=== PATIENT | female | born 1990 | race Caucasian/White ===

== ENCOUNTER 2017-09-11 10:55 | Outpatient (CLI) | payer BC | END 2017-09-11 13:55 | disposition home or self-care (01) | LOC: OBT 10:55 → L-D 10:56 → OBT 13:55 | DX: O26.893 Other specified pregnancy related conditions, third trimester (principal); R05 Cough; Z3A.30 30 weeks gestation of pregnancy | CPT/HCPCS: 76817 ==

== ENCOUNTER 2017-09-11 13:55 | Emergency (ER) | payer BC | END 2017-09-11 14:19 | disposition home or self-care (01) | LOC: E/R 13:55 | DX: O99.513 Diseases of the respiratory system complicating pregnancy, third trimester (principal); J06.9 Acute upper respiratory infection, unspecified; O99.283 Endocrine, nutritional and metabolic diseases complicating pregnancy, third trimester; E03.9 Hypothyroidism, unspecified; Z79.82 Long term (current) use of aspirin; Z3A.31 31 weeks gestation of pregnancy | CPT/HCPCS: 99283; Z7502 ==

== ENCOUNTER 2017-09-26 09:10 | Inpatient (IN) | payer BC ==
[2017-09-26] MEDS: ACETAMINOPHEN 500 MG TAB PO (11:01)
[2017-09-26 11:36] LABS: ADD MAN DIFF? NO
[2017-09-26 11:42] LABS: ADD UMIC YES; UR ASCORBIC ACID NEGATIVE (NEGATIVE); UR BACTERIA FEW /HPF (NONE SEEN); UR BILIRUBIN (Dip) NEGATIVE (NEGATIVE); UR BLOOD (Dip) NEGATIVE (NEGATIVE); UR CLARITY CLEAR (CLEAR); UR COLOR YELLOW (YELLOW); UR GLUCOSE (Dip) NEGATIVE (NEGATIVE); UR KETONES (Dip) NEGATIVE (NEGATIVE); UR LEUKOCYTE ESTERASE (Dip) TRACE Leu/ul (NEGATIVE); UR MUCUS FEW /HPF (NONE SEEN); UR NITRITE (Dip) NEGATIVE (NEGATIVE); UR RBC 1 /HPF (0-5); UR SPECIFIC GRAVITY (Dip) 1.015 (1.003-1.030); UR SQUAMOUS EPITHELIAL CELL FEW /HPF (FEW); UR TOTAL PROTEIN (Dip) NEGATIVE (NEGATIVE); UR UROBILINOGEN (Dip) NEGATIVE (NEGATIVE); UR WBC 9 /HPF (0-5)
[2017-09-26 11:43] LABS: WHITE BLOOD COUNT 8.7 10^3/ul (4.8-10.8)
[2017-09-26 11:43] LABS: BASOPHILS % 0.3 % (0.0-2.0); EOSINOPHILS # 0.1 10^3/ul (0.0-0.5); EOSINOPHILS % 0.8 % (0.0-7.0); HEMATOCRIT 37.9 % (37.0-47.0); LYMPHOCYTES % 22.6 % (15.0-51.0); MEAN CORPUSCULAR HEMOGLOBIN 31.2 pg (29.0-33.0); MEAN CORPUSCULAR HGB CONC 34.3 g/dl (32.0-37.0); MEAN CORPUSCULAR VOLUME 90.9 fl (82.0-101.0); MEAN PLATELET VOLUME 10.5 fl (7.4-10.4); MONOCYTE # 0.3 10^3/ul (0.3-0.9); MONOCYTES % 3.4 % (0.0-11.0); NEUTROPHIL # 6.3 10^3/ul (1.6-7.5); NEUTROPHILS % 72.1 % (39.0-77.0); PLATELET COUNT 172 10^3/UL (140-415); RED BLOOD COUNT 4.17 10^6/ul (4.20-5.40); RED CELL DISTRIBUTION WIDTH 12.5 % (11.5-14.5)
[2017-09-26 12:13] LABS: ALANINE AMINOTRANSFERASE 29 IU/L (13-69); ALBUMIN 3.4 g/dl (3.3-4.9); ALBUMIN/GLOBULIN RATIO 1.13; ALKALINE PHOSPHATASE 147 IU/L (42-121); ANION GAP 12 (8-16); ASPARTATE AMINO TRANSFERASE 21 IU/L (15-46); BILIRUBIN,INDIRECT 0.5 mg/dl (0-1.1); BILIRUBIN,TOTAL 0.5 mg/dl (0.2-1.3); BLOOD UREA NITROGEN 7 mg/dl (7-20); CALCIUM 8.7 mg/dl (8.4-10.2); CARBON DIOXIDE 23 mmol/L (21-31); CHLORIDE 107 mmol/L (97-110); CREATININE 0.67 mg/dl (0.44-1.00); GLUCOSE 74 mg/dl (70-220); POTASSIUM 3.9 mmol/L (3.5-5.1); SODIUM 138 mmol/L (135-144); TOTAL PROTEIN 6.4 g/dl (6.1-8.1); URIC ACID 4.2 mg/dl (3.1-7.9)
[2017-09-26 12:21] LABS: INR 0.89; PARTIAL THROMBOPLASTIN TIME 25.3 Sec (25.0-35.0); PROTIME 12.1 Sec (11.9-14.9); PT RATIO 0.9
[2017-09-26] MEDS: LACTATED RINGER'S 1,000 ML IV ×3 (13:28→23:12)
[2017-09-26] MEDS: ACETAMINOPHEN 325 MG TAB PO (20:20)
[2017-09-27] MEDS: ACETAMINOPHEN 325 MG TAB PO ×2 (06:23→17:25)
[2017-09-27] MEDS: LACTATED RINGER'S 1,000 ML IV ×2 (06:41→17:51)
[2017-09-27] MEDS: PRENATAL VITAMIN PO (21:12)
[2017-09-27] MEDS: ASPIRIN 81 MG TAB PO (21:12)
[2017-09-28] MEDS: LACTATED RINGER'S 1,000 ML IV (01:58)
[2017-09-28] MEDS: ACETAMINOPHEN 325 MG TAB PO ×2 (07:45→15:48)
[2017-09-28] MEDS: ASPIRIN 81 MG TAB PO ×2 (09:00→22:30)
[2017-09-28 12:48] LABS: ADD UMIC YES; UR ASCORBIC ACID NEGATIVE (NEGATIVE); UR BACTERIA FEW /HPF (NONE SEEN); UR BILIRUBIN (Dip) NEGATIVE (NEGATIVE); UR BLOOD (Dip) NEGATIVE (NEGATIVE); UR CLARITY CLEAR (CLEAR); UR COLOR YELLOW (YELLOW); UR GLUCOSE (Dip) NEGATIVE (NEGATIVE); UR KETONES (Dip) NEGATIVE (NEGATIVE); UR LEUKOCYTE ESTERASE (Dip) NEGATIVE Leu/ul (NEGATIVE); UR NITRITE (Dip) POSITIVE (NEGATIVE); UR RBC 0 /HPF (0-5); UR SPECIFIC GRAVITY (Dip) 1.008 (1.003-1.030); UR TOTAL PROTEIN (Dip) NEGATIVE (NEGATIVE); UR UROBILINOGEN (Dip) NEGATIVE (NEGATIVE); UR WBC 0 /HPF (0-5)
[2017-09-28] MEDS: FERROUS SULFATE (EC) 325 MG TAB PO ×2 (18:17→20:56)
[2017-09-29] MEDS: ACETAMINOPHEN 325 MG TAB PO (11:29)
[2017-09-29 12:41] LABS: ANA SCREEN NEGATIVE (NEGATIVE)
[2017-09-29] MEDS: NITROFURANTOIN (SR) 100 MG CAP PO ×2 (15:47→23:57)
[2017-09-29] MEDS ORDERED: NITROFURANTOIN (SR) 100 MG CAP PO (21:00)
[2017-09-29] MEDS: PRENATAL VITAMIN PO (21:16)
[2017-09-29] MEDS: ASPIRIN 81 MG TAB PO (21:17)
[2017-09-29] MEDS: FERROUS SULFATE (EC) 325 MG TAB PO (21:17)
[2017-09-30] MEDS: NITROFURANTOIN (SR) 100 MG CAP PO ×2 (09:39→21:08)
[2017-09-30] MEDS: INFLUENZA VIRUS VACCINE 0.5 ML SYG IM* (16:19)
[2017-09-30] MEDS: FERROUS SULFATE (EC) 325 MG TAB PO (21:08)
[2017-09-30] MEDS: ASPIRIN 81 MG TAB PO (21:08)
[2017-09-30] MEDS: PRENATAL VITAMIN PO (21:09)
[2017-10-01] MEDS: NITROFURANTOIN (SR) 100 MG CAP PO (08:51)
[2017-10-02 20:12] LABS: ANTI-THROMBIN III 24 mg/dL (19-30)
== END 2017-10-01 14:30 | disposition home or self-care (01) | DRG 781 ==
LOC: OBT 09:10 → L-D 09:10 → OBT 13:48 → PP1 11:20
PROC: 3E0234Z Introduction of Serum, Toxoid and Vaccine into Muscle, Percutaneous Approach (ICD-10-PCS; principal; 2017-09-30)
DX: O99.353 Diseases of the nervous system complicating pregnancy, third trimester (principal); G40.909 Epilepsy, unspecified, not intractable, without status epilepticus; G43.909 Migraine, unspecified, not intractable, without status migrainosus; O23.43 Unspecified infection of urinary tract in pregnancy, third trimester; Z86.73 Personal history of transient ischemic attack (TIA), and cerebral infarction without residual deficits; Z79.82 Long term (current) use of aspirin; Z3A.33 33 weeks gestation of pregnancy; Z23 Encounter for immunization
CPT/HCPCS: 36415; 70544; 70551; 76815; 76817; 76818; 80053; 81001; 82731; 83890; 84560; 85025; 85300; 85302; 85305; 85384; 85610; 85613; 85730; 86038; 87086; 90686

== ENCOUNTER 2017-10-11 19:16 | Outpatient (CLI) | payer BC ==
[2017-10-11 20:16] LABS: ADD UMIC YES; UR ASCORBIC ACID 40 mg/dL (NEGATIVE); UR BACTERIA FEW /HPF (NONE SEEN); UR BILIRUBIN (Dip) NEGATIVE (NEGATIVE); UR BLOOD (Dip) NEGATIVE (NEGATIVE); UR CALCIUM OXALATE CRYSTAL MANY /HPF (NONE SEEN); UR CLARITY SLIGHTLY CLOUDY (CLEAR); UR COLOR YELLOW (YELLOW); UR GLUCOSE (Dip) NEGATIVE (NEGATIVE); UR KETONES (Dip) NEGATIVE (NEGATIVE); UR LEUKOCYTE ESTERASE (Dip) 1+ Leu/ul (NEGATIVE); UR MUCUS FEW /HPF (NONE SEEN); UR NITRITE (Dip) NEGATIVE (NEGATIVE); UR RBC 1 /HPF (0-5); UR SPECIFIC GRAVITY (Dip) 1.023 (1.003-1.030); UR SQUAMOUS EPITHELIAL CELL MODERATE /HPF (FEW); UR TOTAL PROTEIN (Dip) NEGATIVE (NEGATIVE); UR UROBILINOGEN (Dip) NEGATIVE (NEGATIVE); UR WBC 115 /HPF (0-5)
[2017-10-11] MEDS: TERBUTALINE 1 MG/ML INJ SC (21:10)
[2017-10-11] MEDS: LACTATED RINGER'S 1,000 ML IV ×2 (21:11→21:39)
[2017-10-11] MEDS: SOD CHLORIDE 0.9% 1,000 ML IV (22:45)
[2017-10-11] MEDS: FLUCONAZOLE 150 MG TAB PO (22:45)
[2017-10-11] MEDS: CEFTRIAXONE 1 GM/50 ML (PMX) 50 ML IVPB (22:46)
== END 2017-10-12 00:45 | disposition home or self-care (01) ==
LOC: OBT 19:16 → L-D 19:18
DX: O23.43 Unspecified infection of urinary tract in pregnancy, third trimester (principal); B96.20 Unspecified Escherichia coli [E. coli] as the cause of diseases classified elsewhere; O47.03 False labor before 37 completed weeks of gestation, third trimester; Z3A.35 35 weeks gestation of pregnancy; Z86.73 Personal history of transient ischemic attack (TIA), and cerebral infarction without residual deficits
CPT/HCPCS: 36415; 76818; 81001; 87086; 96360; 96361

== ENCOUNTER 2017-10-22 10:47 | Outpatient (CLI) | payer BC ==
[2017-10-22 12:31] LABS: ADD UMIC YES; UR AMORPHOUS CRYSTAL FEW /HPF (NONE SEEN); UR ASCORBIC ACID 20 mg/dL (NEGATIVE); UR BACTERIA FEW /HPF (NONE SEEN); UR BILIRUBIN (Dip) NEGATIVE (NEGATIVE); UR BLOOD (Dip) NEGATIVE (NEGATIVE); UR CLARITY CLOUDY (CLEAR); UR COLOR YELLOW (YELLOW); UR GLUCOSE (Dip) NEGATIVE (NEGATIVE); UR KETONES (Dip) NEGATIVE (NEGATIVE); UR LEUKOCYTE ESTERASE (Dip) NEGATIVE Leu/ul (NEGATIVE); UR NITRITE (Dip) NEGATIVE (NEGATIVE); UR RBC 0 /HPF (0-5); UR SPECIFIC GRAVITY (Dip) 1.015 (1.003-1.030); UR SQUAMOUS EPITHELIAL CELL FEW /HPF (FEW); UR TOTAL PROTEIN (Dip) NEGATIVE (NEGATIVE); UR UROBILINOGEN (Dip) NEGATIVE (NEGATIVE); UR WBC 3 /HPF (0-5)
== END 2017-10-22 16:06 | disposition home or self-care (01) ==
LOC: OBT 10:47 → L-D 10:48 → OBT 16:06
DX: O47.03 False labor before 37 completed weeks of gestation, third trimester (principal); Z3A.36 36 weeks gestation of pregnancy
CPT/HCPCS: 76815; 76818; 81001

== ENCOUNTER 2017-10-30 14:24 | Outpatient (CLI) | payer BC ==
[2017-10-30] MEDS: LACTATED RINGER'S 1,000 ML IV (16:37)
== END 2017-10-30 20:49 | disposition home or self-care (01) ==
LOC: OBT 14:24 → L-D 14:26 → OBT 20:49
DX: O62.9 Abnormality of forces of labor, unspecified (principal); Z3A.37 37 weeks gestation of pregnancy
CPT/HCPCS: 36415; 76818; 96360; 96361

== ENCOUNTER 2017-11-03 16:36 | Outpatient (CLI) | payer BC | END 2017-11-03 20:20 | disposition home or self-care (01) | LOC: OBT 16:36 → L-D 16:37 → OBT 20:20 | DX: O62.9 Abnormality of forces of labor, unspecified (principal); Z3A.38 38 weeks gestation of pregnancy | CPT/HCPCS: 76818 ==

== ENCOUNTER 2018-03-24 21:43 | Emergency (ER) | payer BC ==
[2018-03-24 22:38] LABS: ADD MAN DIFF? NO
[2018-03-24 22:49] LABS: BASOPHIL # 0.1 10^3/ul (0.0-0.1); BASOPHILS % 0.8 % (0.0-2.0); EOSINOPHILS # 0.2 10^3/ul (0.0-0.5); EOSINOPHILS % 2.6 % (0.0-7.0); HEMOGLOBIN 15.3 g/dl (12.0-16.0); LYMPHOCYTES # 3.1 10^3/ul (0.8-2.9); LYMPHOCYTES % 41.6 % (15.0-51.0); MEAN CORPUSCULAR HEMOGLOBIN 31.5 pg (29.0-33.0); MEAN CORPUSCULAR VOLUME 92.8 fl (82.0-101.0); MEAN PLATELET VOLUME 10.4 fl (7.4-10.4); MONOCYTE # 0.4 10^3/ul (0.3-0.9); NEUTROPHIL # 3.7 10^3/ul (1.6-7.5); NEUTROPHILS % 49.6 % (39.0-77.0); PLATELET COUNT 238 10^3/UL (140-415); RED BLOOD COUNT 4.85 10^6/ul (4.20-5.40)
[2018-03-24 22:49] LABS: WHITE BLOOD COUNT 7.4 10^3/ul (4.8-10.8)
[2018-03-24 23:13] LABS: ANION GAP 13 (8-16); BLOOD UREA NITROGEN 14 mg/dl (7-20); CALCIUM 9.3 mg/dl (8.4-10.2); CARBON DIOXIDE 29 mmol/L (21-31); CHLORIDE 105 mmol/L (97-110); CHOL/HDL RATIO 4.5 RATIO; CHOLESTEROL 223 mg/dl (100-200); GLUCOSE 101 mg/dl (70-220); HDL CHOLESTEROL 49 mg/dl (33-83); LDL CHOLESTEROL,CALCULATED 136 mg/dl; POTASSIUM 4.1 mmol/L (3.5-5.1); SODIUM 143 mmol/L (135-144); TRIGLYCERIDES 191 mg/dl (0-149)
[2018-03-24 23:24] LABS: TROPONIN-I < 0.010 ng/ml (0.000-0.120)
[2018-03-24 23:41] LABS: INR 0.86; PROTIME 11.8 Sec (11.9-14.9); PT RATIO 0.9
[2018-03-24 23:42] LABS: PARTIAL THROMBOPLASTIN TIME 29.5 Sec (25.0-35.0)
[2018-03-24] MEDS: DIPHENHYDRAMINE 50 MG INJ IV (23:50)
[2018-03-24] MEDS: PROCHLORPERAZINE 10 MG INJ IV (23:50)
[2018-03-24] MEDS: KETOROLAC 30 MG INJ IV (23:51)
== END 2018-03-25 00:45 | disposition home or self-care (01) ==
LOC: E/R 03-25 00:45 → FTE 21:43
DX: R51 Headache (principal); R29.810 Facial weakness; E03.9 Hypothyroidism, unspecified; Z79.82 Long term (current) use of aspirin
CPT/HCPCS: 36415; 70450; 80048; 80061; 81025; 84484; 84703; 85025; 85610; 85730; 96374; 99285-25

== ENCOUNTER 2019-01-19 16:57 | Emergency (ER) | payer BC ==
[2019-01-19 17:38] LABS: ADD MAN DIFF? NO
[2019-01-19] MEDS: SOD CHLORIDE 0.9% 1,000 ML IV (17:42)
[2019-01-19 17:45] LABS: BASOPHIL # 0.1 10^3/ul (0.0-0.1); BASOPHILS % 0.6 % (0.0-2.0); EOSINOPHILS # 0.1 10^3/ul (0.0-0.5); EOSINOPHILS % 1.5 % (0.0-7.0); HEMATOCRIT 44.4 % (37.0-47.0); HEMOGLOBIN 15.1 g/dl (12.0-16.0); LYMPHOCYTES # 2.7 10^3/ul (0.8-2.9); LYMPHOCYTES % 28.7 % (15.0-51.0); MEAN CORPUSCULAR HEMOGLOBIN 30.7 pg (29.0-33.0); MEAN CORPUSCULAR VOLUME 90.2 fl (82.0-101.0); MONOCYTE # 0.4 10^3/ul (0.3-0.9); MONOCYTES % 4.2 % (0.0-11.0); NEUTROPHIL # 6.1 10^3/ul (1.6-7.5); NEUTROPHILS % 64.8 % (39.0-77.0); PLATELET COUNT 253 10^3/UL (140-415); RED BLOOD COUNT 4.92 10^6/ul (4.20-5.40); RED CELL DISTRIBUTION WIDTH 12.1 % (11.5-14.5)
[2019-01-19 17:45] LABS: WHITE BLOOD COUNT 9.5 10^3/ul (4.8-10.8)
[2019-01-19] MEDS: LORAZEPAM 2 MG INJ IV (17:45)
[2019-01-19] MEDS: ONDANSETRON 4 MG INJ IV (17:45)
[2019-01-19 18:07] LABS: ANION GAP 7 (5-13); BLOOD UREA NITROGEN 15 mg/dl (7-20); CALCIUM 9.5 mg/dl (8.4-10.2); CARBON DIOXIDE 27 mmol/L (21-31); CHLORIDE 106 mmol/L (97-110); CREATININE 0.75 mg/dl (0.44-1.00); Estimated GFR > 60 mL/min (>60); GLUCOSE 125 mg/dl (70-220); POTASSIUM 3.4 mmol/L (3.5-5.1); SODIUM 140 mmol/L (135-144)
[2019-01-19] MEDS ORDERED: IBUPROFEN 600 MG TAB PO (18:30)
[2019-01-19] MEDS: KETOROLAC 15 MG INJ IV (19:09)
== END 2019-01-19 20:06 | disposition home or self-care (01) ==
LOC: E/R 16:57
DX: R29.810 Facial weakness (principal); E03.9 Hypothyroidism, unspecified; R40.2142 Coma scale, eyes open, spontaneous, at arrival to emergency department; R40.2252 Coma scale, best verbal response, oriented, at arrival to emergency department; Z86.73 Personal history of transient ischemic attack (TIA), and cerebral infarction without residual deficits
CPT/HCPCS: 36415; 80048; 81025; 85025; 96374; 96375; 99284-25

== ENCOUNTER 2019-02-02 15:51 | Emergency (ER) | payer BC ==
[2019-02-02] MEDS: IBUPROFEN 600 MG TAB PO (16:52)
== END 2019-02-02 16:52 | disposition home or self-care (01) ==
LOC: FTE 15:51
DX: H66.013 Acute suppurative otitis media with spontaneous rupture of ear drum, bilateral (principal); E03.9 Hypothyroidism, unspecified; Z86.73 Personal history of transient ischemic attack (TIA), and cerebral infarction without residual deficits
CPT/HCPCS: 99282; Z7502

== ENCOUNTER 2019-03-19 11:39 | Emergency (ER) | payer BC ==
[2019-03-19] MEDS: ONDANSETRON (ODT) 4 MG TAB ODT (12:26)
[2019-03-19] MEDS: HYDROCODONE/APAP (5/325) TAB PO (12:27)
== END 2019-03-19 14:03 | disposition home or self-care (01) ==
LOC: FTE 11:39
DX: S99.912A Unspecified injury of left ankle, initial encounter (principal); E03.9 Hypothyroidism, unspecified; W50.1XXA Accidental kick by another person, initial encounter; Y92.322 Soccer field as the place of occurrence of the external cause; Z86.73 Personal history of transient ischemic attack (TIA), and cerebral infarction without residual deficits
CPT/HCPCS: 73610; 73610-RT; 99283-25

== ENCOUNTER 2019-04-03 17:31 | Emergency (ER) | payer BC ==
[2019-04-03] MEDS ORDERED: KETOROLAC 30 MG INJ IM (18:18)
[2019-04-03] MEDS: ONDANSETRON (ODT) 4 MG TAB ODT ×2 (18:31→19:03)
[2019-04-03] MEDS: DEXAMETHASONE 10 MG/ML 1 ML INJ IM (18:38)
[2019-04-03] MEDS: MECLIZINE 12.5 MG TAB PO (18:38)
[2019-04-03] MEDS: HYDROCODONE/APAP (10/325) TAB PO (18:38)
[2019-04-03 18:40] LABS: ADD MAN DIFF? NO
[2019-04-03 18:42] LABS: BASOPHIL # 0.1 10^3/ul (0.0-0.1); BASOPHILS % 0.6 % (0.0-2.0); EOSINOPHILS # 0.1 10^3/ul (0.0-0.5); EOSINOPHILS % 1.7 % (0.0-7.0); HEMATOCRIT 47.8 % (37.0-47.0); HEMOGLOBIN 16.1 g/dl (12.0-16.0); LYMPHOCYTES # 2.6 10^3/ul (0.8-2.9); LYMPHOCYTES % 31.1 % (15.0-51.0); MEAN CORPUSCULAR HGB CONC 33.7 g/dl (32.0-37.0); MEAN CORPUSCULAR VOLUME 91.9 fl (82.0-101.0); MEAN PLATELET VOLUME 10.2 fl (7.4-10.4); MONOCYTE # 0.5 10^3/ul (0.3-0.9); MONOCYTES % 5.8 % (0.0-11.0); NEUTROPHIL # 5.1 10^3/ul (1.6-7.5); NEUTROPHILS % 60.4 % (39.0-77.0); PLATELET COUNT 244 10^3/UL (140-415)
[2019-04-03 18:42] LABS: WHITE BLOOD COUNT 8.4 10^3/ul (4.8-10.8)
[2019-04-03 18:55] LABS: ADD UMIC YES; UR AMORPHOUS CRYSTAL MODERATE /HPF (NONE SEEN); UR ASCORBIC ACID NEGATIVE (NEGATIVE); UR BACTERIA FEW /HPF (NONE SEEN); UR BILIRUBIN (Dip) NEGATIVE (NEGATIVE); UR BLOOD (Dip) NEGATIVE (NEGATIVE); UR CLARITY CLOUDY (CLEAR); UR COLOR YELLOW (YELLOW); UR GLUCOSE (Dip) NEGATIVE (NEGATIVE); UR KETONES (Dip) NEGATIVE (NEGATIVE); UR LEUKOCYTE ESTERASE (Dip) NEGATIVE Leu/ul (NEGATIVE); UR NITRITE (Dip) NEGATIVE (NEGATIVE); UR RBC 6 /HPF (0-5); UR SPECIFIC GRAVITY (Dip) 1.019 (1.003-1.030); UR SQUAMOUS EPITHELIAL CELL MANY /HPF (FEW); UR TOTAL PROTEIN (Dip) NEGATIVE (NEGATIVE); UR UROBILINOGEN (Dip) NEGATIVE (NEGATIVE); UR WBC 6 /HPF (0-5)
[2019-04-03 19:01] LABS: ANION GAP 8 (5-13); BLOOD UREA NITROGEN 12 mg/dl (7-20); CALCIUM 9.5 mg/dl (8.4-10.2); CARBON DIOXIDE 29 mmol/L (21-31); CHLORIDE 104 mmol/L (97-110); CREATININE 0.89 mg/dl (0.44-1.00); Estimated GFR > 60 mL/min (>60); GLUCOSE 116 mg/dl (70-220); SODIUM 141 mmol/L (135-144)
== END 2019-04-03 20:00 | disposition home or self-care (01) ==
LOC: FTE 17:31
DX: G44.011 Episodic cluster headache, intractable (principal); E03.9 Hypothyroidism, unspecified
CPT/HCPCS: 80048; 81001; 81025; 85025; 96372; 99284-25